=== PATIENT | female | born 1975 | race Caucasian/White ===

== ENCOUNTER 2023-10-24 17:00 | Outpatient (OUT) | payer BC, SELFPAY | END 2023-10-24 17:01 | disposition home or self-care (01) | LOC: SLEEP 17:01 | PROVIDERS: PCP Nurse Practitioner; Visit Provider Nurse Practitioner | DX: G47.33 Obstructive sleep apnea (adult) (pediatric) (principal) | CPT/HCPCS: 95806 ==